=== PATIENT | female | born 1980 | race Caucasian/White ===

== ENCOUNTER 2017-04-24 19:01 | Outpatient (CLI) | END 2017-04-24 19:02 | disposition left against medical advice (07) | LOC: AMBL 19:01 | PROVIDERS: ATTEND Internal Medicine Geriatric Medicine | DX: S69.92XA Unspecified injury of left wrist, hand and finger(s), initial encounter (principal); V40.5XXA Car driver injured in collision with pedestrian or animal in traffic accident, initial encounter ==